=== PATIENT | female | born 1980 | race Native Hawaiian/Other Pacific Islander ===

== ENCOUNTER 2018-05-29 12:05 | Observation (INO) | payer OTHER ==
[~2018-05-29] VITALS: Ht 165.1 cm; Wt 65.5 kg
[2018-05-29 12:39] VITALS: BP 109/60; TEMP 97.6
[2018-05-29 17:42] LABS: POTASSIUM 3.1 mmol/L (3.6-5.2)
[2018-05-29 17:56] LABS: PLATELET COUNT 240 K/uL (152-353)
[2018-05-29 23:29] VITALS: BP 103/51; TEMP 97.8; Ht 165.1 cm; Wt 65.5 kg
[2018-05-30] MEDS ORDERED: GABA400C2 PO (02:41)
[2018-05-30] MEDS ORDERED: CLONIDINE HYDR0.1 M1 PO (02:46)
[2018-05-30] MEDS ORDERED: FURO40TA93 PO (02:47)
[2018-05-30] MEDS ORDERED: TIZA4TAB5 PO (02:48)
[2018-05-30] MEDS ORDERED: BUPR8SUB2 PO (02:49)
[2018-05-30] MEDS ORDERED: ESTR1TAB13 PO (02:50)
[2018-05-30] MEDS ORDERED: CLONAZEP ODT2 MG PO (02:51)
[2018-05-30 05:08] VITALS: BP 90/42; TEMP 98.1
[2018-05-30 05:52] LABS: POTASSIUM 3.2 mmol/L (3.6-5.2)
[2018-05-30 08:01] VITALS: BP 105/45; TEMP 97.6
[2018-05-30 12:03] VITALS: BP 100/56; TEMP 98.1
[2018-05-30 16:25] VITALS: BP 103/59; TEMP 97.5
[2018-05-30 20:00] VITALS: BP 95/51; TEMP 97.7
[2018-05-31] VITALS: BP 98/55; TEMP 98.6
[2018-05-31 03:56] VITALS: BP 95/59; TEMP 97.6
[2018-05-31 07:04] LABS: PLATELET COUNT 255 K/uL (152-353)
[2018-05-31 07:21] LABS: POTASSIUM 3.7 mmol/L (3.6-5.2)
[2018-05-31 08:04] VITALS: BP 112/61; TEMP 97.6
[2018-05-31 12:05] VITALS: BP 103/54; TEMP 97.5
[2018-05-31 16:01] VITALS: BP 106/67; TEMP 98.2
[2018-05-31 19:48] VITALS: BP 96/61; TEMP 97.5
[2018-06-01] VITALS: BP 88/55; TEMP 97.6
[2018-06-01 04:00] VITALS: BP 101/60; TEMP 97.8
[2018-06-01 05:51] LABS: PLATELET COUNT 224 K/uL (152-353)
[2018-06-01 05:58] LABS: POTASSIUM 3.7 mmol/L (3.6-5.2)
[2018-06-01 08:00] VITALS: BP 92/42; TEMP 97.6
[2018-06-01 08:04] VITALS: BP 92/42; TEMP 97.6
[2018-06-01] MEDS ORDERED: METO50TA63 PO (09:49)
[2018-06-01 12:00] VITALS: BP 96/44; TEMP 97.8
[2018-06-01 15:54] VITALS: BP 86/42; TEMP 97.7
== END 2018-06-01 18:35 ==
LOC: ED 12:05 → MED/SURG 20:50
PROVIDERS: Emergency Medicine; ADMIT Family Medicine
DX: K59.03 Drug induced constipation (principal); K56.7 Ileus, unspecified; I10 Essential (primary) hypertension; F17.210 Nicotine dependence, cigarettes, uncomplicated; D64.9 Anemia, unspecified; M51.35 Other intervertebral disc degeneration, thoracolumbar region; R11.2 Nausea with vomiting, unspecified
CPT/HCPCS: 36415; 74022; 80048; 80053; 81000; 85027; 96365; 96366; 96367; 96374; 99220; 99283; G0378; J1650; J1940; J2550; J3490; Q9963

== ENCOUNTER 2018-06-01 18:41 | Outpatient (CLI) | payer OTHER ==
[~2018-06-01 18:41] MED LIST: BUPR8SUB2 PO; CLONAZEP ODT2 MG PO; CLONIDINE HYDR0.1 M1 PO; ESTR1TAB13 PO; FURO40TA93 PO; GABA400C2 PO; METO50TA63 PO; TIZA4TAB5 PO
== END 2018-06-01 19:29 | disposition short-term general hospital (02) ==
LOC: AMB 18:41
DX: K59.03 Drug induced constipation (principal); K56.7 Ileus, unspecified; I10 Essential (primary) hypertension; F17.210 Nicotine dependence, cigarettes, uncomplicated; D64.9 Anemia, unspecified; M51.35 Other intervertebral disc degeneration, thoracolumbar region; R11.2 Nausea with vomiting, unspecified
CPT/HCPCS: A0425; A0429